=== PATIENT | male | born 1970 | race Asian ===

== ENCOUNTER 2024-02-06 06:44 | Emergency (ER) | payer BC, SELFPAY ==
[2024-02-06 06:45] VITALS: BMI 25.7
[2024-02-06 07:09] VITALS: BP 137/81; PULSE 75; RESP 16; TEMP 36.7; O2SAT 98; BMI 26.6
--- NOTE | 2024-02-06 07:38 | EDNOTE_ITS ---
ED Skin Abcess FB-RME/HPI General Chief complaint: Skin/Abscess/Foreign Body Stated complaint: RASH ALL OVER BODY Time Seen by Provider: 02/06/24 07:01 Source: patient Arrival date/time: 02/06/24 06:44 54-year-old male presents emergency department complaining of pruritic rash that started bilateral lower extremities and now has spread to trunk and right upper shoulder. Patient reports has been ongoing for 1 month. Mode of arrival: ambulatory Limitations: no limitations Related Data Previous Rx's ?Medication ?Instructions ?Recorded ACETAMINOPHEN WITH CODEINE 1 tab PO Q6H #10 tabs 11/28/15 (TYLENOL W/COD #3) cephalexin 500 mg capsule 500 mg PO BID 5 days #10 caps 02/06/24 hydrocortisone acetate 0.5 % 1 applic topical BID PRN skin 02/06/24 topical cream irritation #28.4 grams hydroxyzine HCl 25 mg tablet 25 mg PO TID PRN itching #20 tabs 02/06/24 Allergies Allergy/AdvReac Type Severity Reaction Status Date / Time bee venom protein (honey bee) Allergy Mild Hives Verified 08/11/22 10:58 Review of Systems Review of Systems Systems Reviewed: All systems reviewed, normal except as documented Constitutional Constitutional: Reports system reviewed and no additional complaints, except as documented, Denies body ache(s), Denies chills and Denies fever(s) Eyes Eyes: Reports system reviewed and no additional complaints, except as documented and Denies change in vision ENT Ears, Nose, Mouth, and Throat: Reports system reviewed and no additional complaints, except as documented, Denies disequilibrium, Denies dizziness, Denies sore throat and Denies vertigo Cardiovascular Cardiovascular: Reports system reviewed and no additional complaints, except as documented, Denies chest pain and Denies dyspnea Respiratory Respiratory: Reports system reviewed and no additional complaints, except as documented, Denies chest congestion, Denies cough and Denies dyspnea Gastrointestinal Gastrointestinal: Reports system reviewed and no additional complaints, except as documented, Denies abdominal pain, Denies nausea and Denies vomiting Musculoskeletal Musculoskeletal: Reports system reviewed and no additional complaints, except as documented, Denies abnormal gait and Denies arthralgias Integumentary/Breasts Skin/Breast: Reports system reviewed and no additional complaints, except as documented, Denies erythema, Reports rash and Denies wounds Neurologic Neurologic: Reports system reviewed and no additional complaints, except as documented, Denies abnormal gait, Denies disequilibrium, Denies dizziness and Denies vertigo Past Medical History Social History SMOKING STATUS: Never smoker ED Exam General Limitations: Present no limitations General appearance: Present alert and in no apparent distress Head Head exam: Present atraumatic Eye Eye exam: Present normal appearance, PERRL and EOMI ENT ENT exam: Present normal exam, normal oropharynx and mucous membranes moist Neck Neck exam: Present normal inspection, full ROM and trachea midline Chest Chest inspection: Present normal inspection and symmetric chest wall rise Respiratory Respiratory exam: Present normal lung sounds bilaterally Cardiovascular Cardiovascular exam: Present regular rate, normal rhythm and normal heart sounds Abdominal Exam Abdominal exam: Present soft and normal bowel sounds Extremities Exam Extremities exam: Present normal inspection and full ROM Back Exam Back exam: Present normal inspection and full ROM Neurological Exam Neurological exam: Present alert, oriented X3 and CN II-XII intact Psychiatric Psychiatric exam: Present normal affect and normal mood Skin Skin exam: Present warm, dry and rash Expanded Skin Exam Type of lesion: Present rash Distribution: Present generalized Body image: 2 1. Vesicular rash 2. Vesicular rash 3. Vesicular rash 4. Vesicular rash Course Quality Measures none Orders Category Date Time Status Dexamethasone Inj [Decadron Inj] Med 02/06/24 07:43 Discontinued 10 mg IM X1 ONE Dexamethasone Inj [Decadron Inj] Med 02/06/24 07:38 Discontinued 10 mg PO X1 ONE Vital Signs Vital signs: Vital Signs Temperature 98.0 F 02/06/24 07:09 Pulse Rate 75 02/06/24 07:09 Respiratory Rate 16 02/06/24 07:09 Blood Pressure 137/81 H 02/06/24 07:09 Pulse Oximetry (%) 98 02/06/24 07:09 Oxygen Delivery Method Room Air 02/06/24 07:09 98% room air within normal limits Skin / Abscess / Foreign Body MDM Narrative MDM Narrative:: 54-year-old male presents emergency department complaining of pruritic rash that started bilateral lower extremities and now has spread to trunk and right upper shoulder. Patient reports has been ongoing for 1 month. Patient reports took 50 mg of Benadryl before arrival. Rash affecting left lower extremity skin is peeled from scratching and might have infection risk we will treat with short-term antibiotics. Patient likely has contact dermatitis case discussed with Dr. Cerrato. Patient discharged on hydroxyzine for itching and steroid. Patient instructed to follow-up with primary care provider and request referral to centerless grinding machine adjuster. Patient data External records reviewed:: [facility] previous records Clinical information provided by:: patient Social determinants that could affect healthcare access:: none Patient has the following chronic illnesses:: See chart How is presenting disease/condition affected by chronic disease/condition?: u neffected by Evaluation data The following diagnostics were reviewed and interpreted by me:: other (specify) (N/A) Lab and/or radiology exams considered but not ordered:: N/A Interpretation Summary: N/A Medications / Prescriptions Medications or Prescriptions considered but not ordered:: ordered Medication administrations:: Medication Administration History Discontinued Medications Dexamethasone Sodium Phosphate (Dexamethasone Sod Phos Inj 10 Mg/Ml Vial) 10 mg PO X1 ONE Stop: 02/06/24 07:39 Last Admin: 02/06/24 07:43 Dose: Not Given Documented By: [facility] Non-Admin Reason: Duplicate Medication on eMAR Dexamethasone Sodium Phosphate (Dexamethasone Sod Phos Inj 10 Mg/Ml Vial) 10 mg IM X1 ONE Stop: 02/06/24 07:44 Last Admin: 02/06/24 07:45 Dose: 10 mg Documented By: [facility] Given Consultations Consultation(s) initiated? (list below): No Diagnosis Skin/Abscess Differential Diagnosis: abscess of skin or subcutaneous tissue, viral exanthem, urticaria, herpes zoster, allergic reaction to drug, cellulitis, eczema, impetigo and contact dermatitis Most likely diagnosis given after review of the tests above:: Contact dermatitis Admission Indicated Admission indicated?: not indicated Admission Request Was there a request for admission?: No Disposition Plan Disposition Plan: Discharge Discharge Attestation Discharge Attestation: The patient and all family members were given an opportunity to ask questions and understood the discharge instructions. Discharge instructions specifically effects, indications for sooner follow up or return to the emergency department, and the expected course of current diagnosis. Patient condition: Stable Discharge Plan Plan Patient Disposition: HOME (Self Care) Disposition Comment: Stable Prescriptions/Referrals Prescriptions/Med Rec: New hydroxyzine HCl 25 mg tablet 25 mg PO TID PRN (Reason: itching) Qty: 20 0RF cephalexin 500 mg capsule 500 mg PO BID 5 Days Qty: 10 0RF hydrocortisone acetate 0.5 % cream 1 applic topical BID PRN (Reason: skin irritation) Qty: 28.4 0RF No Action ACETAMINOPHEN WITH CODEINE (TYLENOL W/COD #3) 1 TAB tablet 1 tab PO Q6H Qty: 10 0RF Problem List Clinical Impression: Contact dermatitis Patient/Caregiver Discharge Instructions Discharge Activity: activity as tolerated Education Materials: Understanding Contact Dermatitis, ED Contact Dermatitis Additional Instructions: Apply medication as prescribed. Follow-up with primary care provider request referral to centerless grinding machine adjuster if symptoms persist. Return to emergency department for any worsening symptoms or as needed. Print Language: Danish Stand Alone Forms: Rosario Award Info., Work/School Release, Patient Portal Info Letter PA/INDUSTRIAL CLEANER Supervising Physician PA/INDUSTRIAL CLEANER Supervising Physician: Dr. Cerrato
[2024-02-06] MEDS: DEXAMETHASONE SOD PHOS INJ 10 MG/ML VIAL IM (07:45)
== END 2024-02-06 08:15 | disposition home or self-care (01) ==
PROVIDERS: Emergency Provider Emergency Medicine
DX: L25.9 Unspecified contact dermatitis, unspecified cause (principal)
CPT/HCPCS: 96372; 99283; J1100